=== PATIENT | male | born 1985 | race Caucasian/White ===

== ENCOUNTER → 2016-08-02 | Outpatient (CLI) | payer OTHER ==
[2016-08-02 17:23] VITALS: BP 142/82
== END ==
LOC: MHUC 17:10
PROVIDERS: ATTEND Physician Assistant
DX: J40 Bronchitis, not specified as acute or chronic (principal)
CPT/HCPCS: 99213

== ENCOUNTER → 2016-09-07 | Outpatient (CLI) | payer OTHER ==
[~2016-09-07] MED LIST: AZIT250T81 PO; PRED20TA PO; TRAM100T7
[2016-09-07 11:14] VITALS: BP 134/81
--- NOTE | 2016-09-07 11:14 | Urgent Care T Sheet Gen (E) ---
Intake General Temperature (Fahrenheit): 97.7 Pulse: 68 Blood Pressure Systolic: 134 Blood Pressure Diastolic: 81 Respirations: 16 SPO2: 99 Description of Symptoms Patient presents with possible sinus infection. States he has had a cold for over a week. Symptoms worsened a few days ago. States he was swimming and noted severe pain/pressure behind his eyes. No fever. Been treating pain with Tylenol and Motrin. History of Present Illness Allergies: Uncoded Allergies: PENICILLIN (Allergy, Mild, 01/16/12) Home Meds Active Scripts Prednisone 20 Mg [id number] Mg PO DAILY #8 TAB Take 40mg po daily x 3 days then 20mg daily x 2 days Prov:RUEL JERRY 09/07/16 Azithromycin (Zithromax Z-Kendall)6 Tab/Pkt [id number] Mg PO SEE INSTRUCTIONS #6 TAB Ref 0 Day One: Take 2 tablets by mouth Days Two-Five: Take 1 tablet by mouth Prov:RUEL JERRY 09/07/16 Prednisone 20 Mg [id number] Mg PO DAILY #6 TAB Prov:RUEL JERRY 08/02/16 Azithromycin (Zithromax Z-Kendall)6 Tab/Pkt [id number] Mg PO SEE INSTRUCTIONS #6 TAB Ref 0 Day One: Take 2 tablets by mouth Days Two-Five: Take 1 tablet by mouth Prov:RUEL JERRY 08/02/16 Reported Medications Tramadol Hcl (Ultram Er)100 Mg Tab.er.24h 01/16/12 Respiratory Constitutional Symptoms: No syptoms reported EENTM: Nose Congestion Respiratory: No symptoms reported Cardiovascular: No symptoms reported Gastrointestinal/Abdominal: No symptoms reported Neurological: Headache All Other Systems Reviewed Remaining Systems: All other systems reviewed with negative findings Past Eufgasb-Wyuibx-Vqmcas Hx Surgeries/Hospitalizations Hospitalization/Surgery Hx: BACK OR SPINAL CORD INJURY LT HAND INJURY EYE INJURY NECK CYST REMOVAL Respiratory Respiratory History: None Cardiovascular Cardiovascular History: None Neuro/Muscular Comment: RT LEG WEAKNESS/AFO Reproductive System Sexually Transmitted Diseases: No Gastrointestinal GI/Endocrine History: None Diabetes Diabetes: No HEENT Impaired Vision: None Hearing Impaired: None Integumentary Integumentary History: Other, see comments Comment: SCAR TISSUE PULLED APART Psychosocial Behavior Disorders: None Physical Exam Physical Exam General Appearance: WD/WN No apparent distress Eyes, Ears, Nose, Throat Ex: TMs normal (air fluid bubbles) Pharynx normal Other (red, swollen nasal turbinates. very tender over the L frontal and maxillary sinuses) Neck Exam: SuppleNo Lymphadenopathy Respiratory Exam: Lungs clear Normal breath sounds Cardiovascular Exam: Regular rate, rhythm Departure Urgent Care Impression Impression: Primary Impression: Sinusitis Qualified Code: J01.10 - Acute frontal sinusitis, unspecified Departure Disposition: HOME OR SELF-CARE Condition: Stable Referrals: FRANSICO DANIELS MD (PCP) Additional Instructions: I have started the patient on Prednisone x 5 days and a Zpak for treatment. Patient states he is scuba diving next week and would like to feel better by then if possible. No NSAIDs while on steroid Rest. Fluids Return as needed Patient understands DC instructions. All questions were answered. Scripts Prednisone 20 Mg [id number] Mg PO DAILY #8 TAB Take 40mg po daily x 3 days then 20mg daily x 2 days Prov:RUEL JERRY 09/07/16 Azithromycin (Zithromax Z-Kendall)6 Tab/Pkt [id number] Mg PO SEE INSTRUCTIONS #6 TAB Ref 0 Day One: Take 2 tablets by mouth Days Two-Five: Take 1 tablet by mouth Prov:RUEL JERRY 09/07/16 End of report . RUEL JERRY Sep 07, 2016 10:42
== END ==
LOC: MHUC 10:16
PROVIDERS: ATTEND Physician Assistant
DX: J01.10 Acute frontal sinusitis, unspecified (principal)
CPT/HCPCS: 99213